=== PATIENT | male | born 1980 | race African-American/Black ===

== ENCOUNTER 2017-01-13 22:13 | Emergency (ER) | payer OTHER ==
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
[~2017-01-13 22:13] MED LIST: FLEXERIL PO; FLEXERIL10 MG PO; KEFLEX500 MG PO; KETOPROFEN PO; LORTAB 5/500 TA1 TA1 PO; MEDROL DOSEPAK4 MG PO; NO MEDICATIONS; ORUDIS75 M1 DOB; ORUDIS75 M1 PO
== END 2017-01-13 22:31 | disposition home or self-care (01) ==
LOC: CFTX 22:13
DX: S39.012A Strain of muscle, fascia and tendon of lower back, initial encounter (principal); S70.01XA Contusion of right hip, initial encounter; F17.200 Nicotine dependence, unspecified, uncomplicated; Z91.030 Bee allergy status; V43.52XA Car driver injured in collision with other type car in traffic accident, initial encounter; Y92.410 Unspecified street and highway as the place of occurrence of the external cause
CPT/HCPCS: 72170; 99283